=== PATIENT | male | born 1985 | race Asian ===

== ENCOUNTER 2016-07-26 09:45 | Inpatient (IN) | payer SELFPAY ==
[~2016-07-26] VITALS: Ht 172.7 cm; Wt 95.7 kg
[2016-07-26] MEDS ORDERED: ALLO100T PO (09:59)
[2016-07-26] MEDS ORDERED: LEVO200 PO (09:59)
[2016-07-26] MEDS ORDERED: TRAM50TA4 PO (09:59)
[2016-07-26 10:29] LABS: BASOPHILS % (AUTO) 0.3 % (0.0-2.0); EOSINOPHILS % (AUTO) 0.3 % (1.0-6.0); HEMATOCRIT 48.6 % (41-53); HEMOGLOBIN 15.7 g/dL (13.5-17.5); LYMPHOCYTES # (AUTO) 1.1 K/uL (1.0-4.8); LYMPHOCYTES % (AUTO) 11.1 % (22.0-44.0); MEAN CORPUSCULAR HEMOGLOBIN 29.3 pg (26.0-34.0); MEAN CORPUSCULAR HGB CONC 32.3 G/dL (31.0-37.0); MEAN CORPUSCULAR VOLUME 91 fL (80-100); MONOCYTES # (AUTO) 0.6 K/uL (0.1-1.0); MONOCYTES % (AUTO) 5.6 % (2.0-9.0); NEUTROPHILS # (AUTO) 8.5 K/uL (1.8-7.7); NEUTROPHILS % (AUTO) 82.7 % (40.0-70.0); PLATELET COUNT (AUTO) 304 K/uL (150-450); RED BLOOD CELL COUNT(AUTO) 5.36 MIL/uL (4.50-5.90); RED CELL DISTRIBUTION WIDTH 16.4 % (11.5-14.5); WHITE BLOOD COUNT (AUTO) 10.2 K/uL (4.5-11.0)
[2016-07-26 10:34] LABS: ANION GAP 12 mmol/L (8-16); CALCIUM, TOTAL 9.1 mg/dL (8.8-10.5); CARBON DIOXIDE 27 mmol/L (22-29); CHLORIDE 99 mmol/L (98-107); CREATININE 1.23 mg/dL (0.60-1.30); GLOMERULAR FILTR. RATE CALC > 60 mL/min (>60); POTASSIUM 3.2 mmol/L (3.5-5.1); SODIUM SERUM 138 mmol/L (136-145); UREA NITROGEN, BLOOD 10 mg/dL (7-18)
[2016-07-26 10:39] LABS: ALANINE AMINOTRANSFERASE 25 U/L (12-78); ALBUMIN 4.5 g/dL (3.4-5.0); ASPARTATE AMINOTRANSFERASE 18 U/L (15-37); BILIRUBIN,TOTAL 0.4 mg/dL (0.1-1.0); TOTAL PROTEIN, SERUM 8.8 g/dL (6.4-8.2)
[2016-07-26] MEDS ORDERED: LORazepam 2 MG TABLET PO PRN (14:30)
[2016-07-26] MEDS ORDERED: ZOLPIDEM TARTRATE 10 MG TABLET PO PRN (14:30)
[2016-07-26] MEDS: HALOPERIDOL 5 MG TABLET PO PRN (16:47)
[2016-07-26 17:45] VITALS: BP 165/112
[2016-07-26] MEDS ORDERED: IBUPROFEN 600 MG TABLET PO PRN (18:15)
[2016-07-26] MEDS ORDERED: ACETAMINOPHEN 500 MG TABLET PO PRN (18:15)
[2016-07-26] MEDS ORDERED: CloNIDine HCL 0.1 MG TABLET PO PRN (18:15)
[2016-07-26] MEDS ORDERED: INFLUENZA VIRUS VACCINE QVS 2016-17 (3YR+)/PF 60 MCG/0.5 ML SYRINGE IM ONE (18:15)
[2016-07-26] MEDS ORDERED: POTASSIUM CHLORIDE 20 MEQ ER TABLET PO ONE (18:15)
[2016-07-26 18:51] VITALS: BP 145/88
[2016-07-26 22:52] VITALS: BP 119/71
[2016-07-27] MEDS ORDERED: LEVOTHYROXINE SODIUM 125 MCG TABLET PO SCH (06:30)
[2016-07-27] MEDS: LEVOTHYROXINE SODIUM 200 MCG TABLET PO SCH (06:39)
[2016-07-27 06:50] VITALS: BP 126/72
[2016-07-27 08:14] VITALS: BP 131/82
[2016-07-27 08:42] LABS: ALANINE AMINOTRANSFERASE 24 U/L (12-78); ALBUMIN 3.9 g/dL (3.4-5.0); ANION GAP 11 mmol/L (8-16); ASPARTATE AMINOTRANSFERASE 24 U/L (15-37); BILIRUBIN,TOTAL 0.6 mg/dL (0.1-1.0); CARBON DIOXIDE 27 mmol/L (22-29); CHLORIDE 100 mmol/L (98-107); CREATININE 1.21 mg/dL (0.60-1.30); GLOMERULAR FILTR. RATE CALC > 60 mL/min (>60); POTASSIUM 3.5 mmol/L (3.5-5.1); SODIUM SERUM 138 mmol/L (136-145); THYROID STIMULATING HORMONE 138.38 uIU/mL (0.36-3.74); TOTAL PROTEIN, SERUM 7.8 g/dL (6.4-8.2); UREA NITROGEN, BLOOD 8 mg/dL (7-18)
[2016-07-27] MEDS: LORazepam 1 MG TABLET PO SCH ×3 (09:59→17:14)
[2016-07-27] MEDS: ALLOPURINOL 100 MG TABLET PO SCH (09:59)
[2016-07-27] MEDS: HALOPERIDOL 5 MG TABLET PO PRN ×2 (09:59→17:14)
[2016-07-27 16:00] VITALS: BP 127/76
[2016-07-28 00:07] VITALS: BP 102/69
[2016-07-28] MEDS: LEVOTHYROXINE SODIUM 200 MCG TABLET PO SCH (06:34)
[2016-07-28] MEDS: HALOPERIDOL 5 MG TABLET PO SCH ×2 (08:54→16:45)
[2016-07-28] MEDS: LORazepam 1 MG TABLET PO SCH ×3 (08:54→16:45)
[2016-07-28] MEDS: ALLOPURINOL 100 MG TABLET PO SCH (08:54)
[2016-07-28 08:58] VITALS: BP 121/81
[2016-07-28 16:09] VITALS: BP 119/78
[2016-07-28] MEDS: BENZTROPINE MESYLATE 0.5 MG TABLET PO SCH (16:58)
[2016-07-29 00:56] VITALS: BP 117/72
[2016-07-29] MEDS: LEVOTHYROXINE SODIUM 200 MCG TABLET PO SCH (07:01)
[2016-07-29 08:28] VITALS: BP 122/75
[2016-07-29] MEDS: HALOPERIDOL 5 MG TABLET PO SCH (08:46)
[2016-07-29] MEDS: BENZTROPINE MESYLATE 0.5 MG TABLET PO SCH (08:46)
[2016-07-29] MEDS: ALLOPURINOL 100 MG TABLET PO SCH (08:46)
[2016-07-29] MEDS ORDERED: HALO5 PO (10:57)
[2016-07-29] MEDS ORDERED: BENZ0.5T6 PO (10:57)
== END 2016-07-29 11:40 | disposition home or self-care (01) | DRG 885 ==
LOC: EMS 09:48 → B3A 16:20 → B2S 07-27 21:10
PROVIDERS: ADMIT Psychiatry & Neurology Psychiatry; ATTEND Psychiatry & Neurology Psychiatry
DX: F29 Unspecified psychosis not due to a substance or known physiological condition (principal); F15.20 Other stimulant dependence, uncomplicated; M10.9 Gout, unspecified; E89.0 Postprocedural hypothyroidism; E87.6 Hypokalemia; I10 Essential (primary) hypertension; F41.9 Anxiety disorder, unspecified; F17.200 Nicotine dependence, unspecified, uncomplicated; Z79.899 Other long term (current) drug therapy; Z28.21 Immunization not carried out because of patient refusal; Z82.49 Family history of ischemic heart disease and other diseases of the circulatory system
CPT/HCPCS: 84439; 84443; 84550; 99285; G0480

== ENCOUNTER 2020-12-22 09:02 | Inpatient (IN) | payer MEDICAID ==
[~2020-12-22] VITALS: Ht 172.7 cm; Wt 78.0 kg
[~2020-12-22 09:02] MED LIST: ALLO100T2 PO; BENZ0.5T44 PO; HALO5TAB2 PO; LEVO200 PO
[2020-12-22] MEDS ORDERED: LORazepam 2 MG TABLET PO ONE (09:30)
[2020-12-22] MEDS ORDERED: HALOPERIDOL 5 MG TABLET PO ONE (09:30)
[2020-12-22 09:38] LABS: EOSINOPHILS % (AUTO) 0 % (1.0-6.0); HEMATOCRIT 45.3 % (41-53); LYMPHOCYTES # (AUTO) 0.3 K/uL (1.0-4.8); LYMPHOCYTES % (AUTO) 3.4 % (22.0-44.0); MEAN CORPUSCULAR HEMOGLOBIN 30.2 pg (26.0-34.0); MEAN CORPUSCULAR HGB CONC 33.1 G/dL (31.0-37.0); MEAN CORPUSCULAR VOLUME 91 fL (80-100); MONOCYTES # (AUTO) 0.1 K/uL (0.1-1.0); MONOCYTES % (AUTO) 0.9 % (2.0-9.0); PLATELET COUNT (AUTO) 328 K/uL (150-450); RED BLOOD CELL COUNT(AUTO) 4.95 MIL/uL (4.50-5.90); RED CELL DISTRIBUTION WIDTH 18.2 % (11.5-14.5)
[2020-12-22 09:42] LABS: NEUTROPHILS % (AUTO) 95.7 % (40.0-70.0)
[2020-12-22 09:44] LABS: ANION GAP 13 mmol/L (8-16); CALCIUM, TOTAL 9.7 mg/dL (8.8-10.5); CARBON DIOXIDE 26 mmol/L (22-29); CHLORIDE 97 mmol/L (98-107); CREATININE 1.02 mg/dL (0.60-1.30); GLOMERULAR FILTR. RATE CALC > 60 mL/min (>60); GLUCOSE,RANDOM 149 mg/dL (70-110); POTASSIUM 3.8 mmol/L (3.5-5.1); SODIUM SERUM 136 mmol/L (136-145); UREA NITROGEN, BLOOD 7 mg/dL (7-18)
[2020-12-22 09:49] LABS: ALANINE AMINOTRANSFERASE 22 U/L (12-78); ALBUMIN 4.2 g/dL (3.4-5.0); ALKALINE PHOSPHATASE 79 U/L (46-116); ASPARTATE AMINOTRANSFERASE 27 U/L (15-37); BILIRUBIN,TOTAL 0.5 mg/dL (0.1-1.0); TOTAL PROTEIN, SERUM 9.2 g/dL (6.4-8.2)
[2020-12-22 10:52] LABS: COVID AG,FIA SOURCE NASOPHARYNGEAL
[2020-12-22 11:32] LABS: AMPHET/METH SCREEN,URINE NEGATIVE (NEGATIVE); BARBITURATE SCREEN, URINE NEGATIVE (NEGATIVE); BENZODIAZEPINES SCREEN,URINE NEGATIVE (NEGATIVE); CANNABINOID SCREEN,URINE NEGATIVE (NEGATIVE); COCAINE SCREEN,URINE NEGATIVE (NEGATIVE); METHADONE SCREEN, URINE NEGATIVE (NEGATIVE); OPIATE SCREEN,URINE NEGATIVE (NEGATIVE)
[2020-12-22 11:35] LABS: PHENCYCLIDINE SCREEN,URINE NEGATIVE (NEGATIVE)
[2020-12-22] MEDS ORDERED: HydrOXYzine PAMOATE 50 MG CAPSULE PO PRN (13:30)
[2020-12-22] MEDS ORDERED: MAGNESIUM HYDROXIDE SUSPENSION 30 ML UDCUP PO PRN (13:30)
[2020-12-22] MEDS ORDERED: MAG HYDROX/AL HYDROX/SIMETH ES 30 ML SUSPENSION UDCUP PO PRN (13:30)
[2020-12-22] MEDS ORDERED: GuaiFENesin/D-METHORPHAN [SUGAR-FREE] 200-20MG/10 ML SYRUP UDCUP PO PRN (13:30)
[2020-12-22] MEDS ORDERED: LORazepam 2 MG TABLET PO PRN (13:30)
[2020-12-22] MEDS ORDERED: TUBERCULIN, PURIFIED PROTEIN DERIVATIVE 5 TU/0.1 ML SYRINGE ID ONE (13:30)
[2020-12-22] MEDS ORDERED: ACETAMINOPHEN 325 MG TABLET PO PRN (13:30)
[2020-12-22] MEDS ORDERED: OLANZapine 5 MG RAPDIS TABLET PO PRN (13:30)
[2020-12-22] MEDS ORDERED: LOPERAMIDE HCL 2 MG CAPSULE PO PRN (13:30)
[2020-12-22] MEDS ORDERED: PROMETHAZINE HCL 25 MG TABLET PO PRN (13:30)
[2020-12-22] MEDS ORDERED: DIAZEPAM 10 MG TABLET PO PRN (14:45)
[2020-12-22] MEDS ORDERED: CYANOCOBALAMIN 1,000 MCG/ML VIAL IM ONE (14:45)
[2020-12-22 15:14] VITALS: BP 132/91
[2020-12-22 16:07] VITALS: BP 117/77
[2020-12-22 16:15] VITALS: BP 117/77
[2020-12-22] MEDS: THIAMINE 100 MG TABLET PO SCH (17:10)
[2020-12-22 17:15] VITALS: BP 143/88
[2020-12-22 18:15] VITALS: BP 130/76
[2020-12-22] MEDS ORDERED: DIVALPROEX SODIUM 500 MG ER TABLET PO SCH (21:00)
[2020-12-22] MEDS ORDERED: OLANZapine 5 MG RAPDIS TABLET PO SCH (21:00)
[2020-12-22] MEDS: MELATONIN 5 MG TABLET PO SCH (21:56)
[2020-12-22 22:15] VITALS: BP 138/80
[2020-12-23] VITALS (9 sets, daily range): BP systolic 113–135; BP diastolic 68–93
[2020-12-23] MEDS: LEVOTHYROXINE SODIUM 200 MCG TABLET PO SCH (06:31)
[2020-12-23] MEDS ORDERED: DIAZEPAM 10 MG TABLET PO PRN (07:00)
[2020-12-23] MEDS: THIAMINE 100 MG TABLET PO SCH ×2 (08:36→16:28)
[2020-12-23] MEDS: NALTREXONE HCL 50 MG TABLET PO SCH (08:36)
[2020-12-23] MEDS: DIAZEPAM 10 MG TABLET PO SCH ×4 (08:36→20:22)
[2020-12-23] MEDS: OMEGA-3/DHA/EPA/FISH OIL 1,000 MG CAPSULE PO SCH (08:36)
[2020-12-23] MEDS: MULTIVITAMINS WITH MINERALS, THERAPEUTIC TABLET PO SCH (08:36)
[2020-12-23] MEDS: FOLIC ACID 1 MG TABLET PO SCH (08:36)
[2020-12-23] MEDS: ALLOPURINOL 100 MG TABLET PO SCH (08:37)
[2020-12-23] MEDS: INDOMETHACIN 50 MG CAPSULE PO PRN (12:17)
[2020-12-23] MEDS: MELATONIN 5 MG TABLET PO SCH (20:22)
[2020-12-23] MEDS: QUEtiapine FUMARATE 25 MG TABLET PO SCH (20:22)
[2020-12-24] MEDS: ZOLPIDEM TARTRATE 10 MG TABLET PO PRN (00:19)
[2020-12-24 00:26] VITALS: BP 115/85
[2020-12-24 00:54] VITALS: BP 128/82
[2020-12-24] MEDS: LEVOTHYROXINE SODIUM 200 MCG TABLET PO SCH (06:44)
[2020-12-24 08:00] VITALS: BP 130/80
[2020-12-24 08:24] VITALS: BP 111/72
[2020-12-24] MEDS: OMEGA-3/DHA/EPA/FISH OIL 1,000 MG CAPSULE PO SCH (08:53)
[2020-12-24] MEDS: THIAMINE 100 MG TABLET PO SCH ×2 (08:53→16:09)
[2020-12-24] MEDS: ALLOPURINOL 100 MG TABLET PO SCH (08:53)
[2020-12-24] MEDS: LamoTRIgine 25 MG TABLET PO SCH (08:53)
[2020-12-24] MEDS: MULTIVITAMINS WITH MINERALS, THERAPEUTIC TABLET PO SCH (08:53)
[2020-12-24] MEDS: FOLIC ACID 1 MG TABLET PO SCH (08:53)
[2020-12-24] MEDS: DIAZEPAM 10 MG TABLET PO SCH ×4 (08:53→20:41)
[2020-12-24] MEDS: NALTREXONE HCL 50 MG TABLET PO SCH (09:01)
[2020-12-24] MEDS: INDOMETHACIN 50 MG CAPSULE PO PRN (12:57)
[2020-12-24] MEDS ORDERED: PredniSONE 20 MG TABLET PO SCH (15:00)
[2020-12-24 16:19] VITALS: BP 135/80
[2020-12-24] MEDS: MELATONIN 5 MG TABLET PO SCH (20:41)
[2020-12-24] MEDS: QUEtiapine FUMARATE 25 MG TABLET PO SCH (20:41)
[2020-12-24] MEDS: QUEtiapine FUMARATE 100 MG TABLET PO PRN (22:01)
[2020-12-25 00:25] VITALS: BP 125/84
[2020-12-25 01:37] VITALS: BP 126/85
[2020-12-25] MEDS: LEVOTHYROXINE SODIUM 200 MCG TABLET PO SCH (06:20)
[2020-12-25] MEDS ORDERED: DIAZEPAM 5 MG TABLET PO PRN (07:00)
[2020-12-25 08:22] VITALS: BP 140/97
[2020-12-25] MEDS: ALLOPURINOL 100 MG TABLET PO SCH (08:45)
[2020-12-25] MEDS: DIAZEPAM 5 MG TABLET PO SCH ×4 (08:46→20:07)
[2020-12-25] MEDS: FOLIC ACID 1 MG TABLET PO SCH (08:46)
[2020-12-25] MEDS: LamoTRIgine 25 MG TABLET PO SCH (08:47)
[2020-12-25] MEDS: NALTREXONE HCL 50 MG TABLET PO SCH (08:47)
[2020-12-25] MEDS: OMEGA-3/DHA/EPA/FISH OIL 1,000 MG CAPSULE PO SCH (08:47)
[2020-12-25] MEDS: MULTIVITAMINS WITH MINERALS, THERAPEUTIC TABLET PO SCH (08:47)
[2020-12-25] MEDS ORDERED: PredniSONE 20 MG TABLET PO SCH (09:00)
[2020-12-25 15:05] VITALS: BP 140/97
[2020-12-25 16:10] VITALS: BP 125/80
[2020-12-25 16:41] VITALS: BP 125/80
[2020-12-25] MEDS: THIAMINE 100 MG TABLET PO SCH (17:00)
[2020-12-25] MEDS: MELATONIN 5 MG TABLET PO SCH (20:06)
[2020-12-25] MEDS: QUEtiapine FUMARATE 25 MG TABLET PO SCH (20:07)
[2020-12-26 00:14] VITALS: BP 125/80
[2020-12-26 06:17] VITALS: BP 122/78
[2020-12-26] MEDS ORDERED: DIAZEPAM 5 MG TABLET PO PRN (07:00)
[2020-12-26] MEDS: LEVOTHYROXINE SODIUM 200 MCG TABLET PO SCH (07:02)
[2020-12-26 08:38] VITALS: BP 132/95
[2020-12-26] MEDS: OMEGA-3/DHA/EPA/FISH OIL 1,000 MG CAPSULE PO SCH (08:45)
[2020-12-26] MEDS: FOLIC ACID 1 MG TABLET PO SCH (08:45)
[2020-12-26] MEDS: ALLOPURINOL 100 MG TABLET PO SCH (08:45)
[2020-12-26] MEDS: NALTREXONE HCL 50 MG TABLET PO SCH (08:45)
[2020-12-26] MEDS: LamoTRIgine 25 MG TABLET PO SCH (08:45)
[2020-12-26] MEDS: THIAMINE 100 MG TABLET PO SCH ×2 (08:45→17:01)
[2020-12-26] MEDS: MULTIVITAMINS WITH MINERALS, THERAPEUTIC TABLET PO SCH (08:45)
[2020-12-26] MEDS ORDERED: PredniSONE 10 MG TABLET PO SCH (09:00)
[2020-12-26] MEDS: INDOMETHACIN 50 MG CAPSULE PO PRN (10:41)
[2020-12-26 16:13] VITALS: BP 132/87
[2020-12-26 18:39] VITALS: BP 132/87
[2020-12-26] MEDS: MELATONIN 5 MG TABLET PO SCH (21:25)
[2020-12-26] MEDS: QUEtiapine FUMARATE 25 MG TABLET PO SCH (21:25)
[2020-12-27 05:30] VITALS: BP 107/64
[2020-12-27 05:37] VITALS: BP 107/64
[2020-12-27] MEDS: LEVOTHYROXINE SODIUM 200 MCG TABLET PO SCH (07:10)
[2020-12-27 08:05] VITALS: BP 134/87
[2020-12-27] MEDS: FOLIC ACID 1 MG TABLET PO SCH (08:58)
[2020-12-27] MEDS: NALTREXONE HCL 50 MG TABLET PO SCH (08:58)
[2020-12-27] MEDS: ALLOPURINOL 100 MG TABLET PO SCH (08:58)
[2020-12-27] MEDS: THIAMINE 100 MG TABLET PO SCH ×2 (08:58→17:19)
[2020-12-27] MEDS: MULTIVITAMINS WITH MINERALS, THERAPEUTIC TABLET PO SCH (08:58)
[2020-12-27] MEDS: LamoTRIgine 25 MG TABLET PO SCH (08:58)
[2020-12-27] MEDS: OMEGA-3/DHA/EPA/FISH OIL 1,000 MG CAPSULE PO SCH (08:58)
[2020-12-27] MEDS ORDERED: PredniSONE 5 MG TABLET PO SCH (09:00)
[2020-12-27 10:10] VITALS: BP 134/87
[2020-12-27 16:10] VITALS: BP 134/93
[2020-12-27] MEDS: COLCHICINE 0.6 MG TABLET PO SCH (17:19)
[2020-12-27] MEDS: QUEtiapine FUMARATE 25 MG TABLET PO SCH (21:46)
[2020-12-27] MEDS: MELATONIN 5 MG TABLET PO SCH (21:46)
[2020-12-27] MEDS: INDOMETHACIN 50 MG CAPSULE PO PRN (22:35)
[2020-12-28] MEDS: LEVOTHYROXINE SODIUM 200 MCG TABLET PO SCH (07:00)
[2020-12-28] MEDS: ALLOPURINOL 100 MG TABLET PO SCH (08:23)
[2020-12-28] MEDS: MULTIVITAMINS WITH MINERALS, THERAPEUTIC TABLET PO SCH (08:23)
[2020-12-28] MEDS: NALTREXONE HCL 50 MG TABLET PO SCH (08:23)
[2020-12-28] MEDS: THIAMINE 100 MG TABLET PO SCH ×2 (08:23→17:00)
[2020-12-28] MEDS: LamoTRIgine 25 MG TABLET PO SCH (08:23)
[2020-12-28] MEDS: OMEGA-3/DHA/EPA/FISH OIL 1,000 MG CAPSULE PO SCH (08:23)
[2020-12-28] MEDS: COLCHICINE 0.6 MG TABLET PO SCH ×2 (08:23→17:00)
[2020-12-28 08:32] VITALS: BP 136/94
[2020-12-28] MEDS: FOLIC ACID 1 MG TABLET PO SCH (08:34)
[2020-12-28 16:17] VITALS: BP 134/89
[2020-12-28] MEDS: MELATONIN 5 MG TABLET PO SCH (20:47)
[2020-12-28] MEDS: QUEtiapine FUMARATE 25 MG TABLET PO SCH (20:47)
[2020-12-29] MEDS: ZOLPIDEM TARTRATE 10 MG TABLET PO PRN (00:25)
[2020-12-29 00:30] VITALS: BP 126/81
[2020-12-29] MEDS: LEVOTHYROXINE SODIUM 200 MCG TABLET PO SCH (07:06)
[2020-12-29 08:24] VITALS: BP 126/87
[2020-12-29] MEDS: ALLOPURINOL 100 MG TABLET PO SCH (08:36)
[2020-12-29] MEDS: COLCHICINE 0.6 MG TABLET PO SCH ×2 (08:36→16:28)
[2020-12-29] MEDS: THIAMINE 100 MG TABLET PO SCH ×2 (08:36→16:28)
[2020-12-29] MEDS: NALTREXONE HCL 50 MG TABLET PO SCH (08:36)
[2020-12-29] MEDS: OMEGA-3/DHA/EPA/FISH OIL 1,000 MG CAPSULE PO SCH (08:36)
[2020-12-29] MEDS: LamoTRIgine 25 MG TABLET PO SCH (08:37)
[2020-12-29] MEDS: MULTIVITAMINS WITH MINERALS, THERAPEUTIC TABLET PO SCH (08:37)
[2020-12-29] MEDS: FOLIC ACID 1 MG TABLET PO SCH (08:37)
[2020-12-29] MEDS ORDERED: MELA5TAB3 PO (16:27)
[2020-12-29] MEDS ORDERED: QUET25TA34 PO (16:27)
[2020-12-29] MEDS ORDERED: OMEG-135 PO (16:27)
[2020-12-29] MEDS ORDERED: NALT50TA PO (16:27)
[2020-12-29] MEDS ORDERED: LAMO25TA66 PO (16:27)
[2020-12-29 17:36] VITALS: BP 115/72
[2020-12-29] MEDS: QUEtiapine FUMARATE 25 MG TABLET PO SCH (20:51)
[2020-12-29] MEDS: MELATONIN 5 MG TABLET PO SCH (20:51)
[2020-12-30] MEDS: QUEtiapine FUMARATE 100 MG TABLET PO PRN (03:14)
[2020-12-30 06:31] VITALS: BP 102/60
[2020-12-30] MEDS: LEVOTHYROXINE SODIUM 200 MCG TABLET PO SCH (06:48)
[2020-12-30] MEDS: MULTIVITAMINS WITH MINERALS, THERAPEUTIC TABLET PO SCH (08:50)
[2020-12-30] MEDS: NALTREXONE HCL 50 MG TABLET PO SCH (08:50)
[2020-12-30] MEDS: FOLIC ACID 1 MG TABLET PO SCH (08:50)
[2020-12-30] MEDS: THIAMINE 100 MG TABLET PO SCH ×2 (08:50→16:11)
[2020-12-30] MEDS: OMEGA-3/DHA/EPA/FISH OIL 1,000 MG CAPSULE PO SCH (08:50)
[2020-12-30] MEDS: COLCHICINE 0.6 MG TABLET PO SCH ×2 (08:52→16:12)
[2020-12-30] MEDS: LamoTRIgine 25 MG TABLET PO SCH (08:52)
[2020-12-30] MEDS: ALLOPURINOL 100 MG TABLET PO SCH (08:54)
[2020-12-30 09:06] VITALS: BP 120/76
[2020-12-30 10:29] VITALS: BP 132/87
[2020-12-30] MEDS: INDOMETHACIN 50 MG CAPSULE PO PRN (10:29)
[2020-12-30 17:39] VITALS: BP 117/78
== END 2020-12-30 20:46 | disposition home or self-care (01) | DRG 750 ==
LOC: EMS 09:08 → B3A 11:43
PROVIDERS: ADMIT Psychiatry & Neurology Psychiatry; ATTEND Psychiatry & Neurology Psychiatry
DX: F25.1 Schizoaffective disorder, depressive type (principal); E89.0 Postprocedural hypothyroidism; F12.90 Cannabis use, unspecified, uncomplicated; I10 Essential (primary) hypertension; M10.9 Gout, unspecified; Z55.9 Problems related to education and literacy, unspecified; Z65.3 Problems related to other legal circumstances; Z59.9 Problem related to housing and economic circumstances, unspecified; Z87.891 Personal history of nicotine dependence; Z20.822 Contact with and (suspected) exposure to COVID-19
CPT/HCPCS: 80053; 85025; 99285; A9575; G0480; J3420